=== PATIENT | male | born 1960 | race Caucasian/White ===

== ENCOUNTER 2016-09-26 06:05 | Day surgery (SDC) | payer OTHER ==
[~2016-09-26] VITALS: Ht 190.5 cm; Wt 186.0 kg
[~2016-09-26 06:05] MED LIST: ABILIFY2 MG PO; AMLODIPINE BESYL5 MG PO; BLEPH-105 ML OPTH; BUSPIRONE HCL10 MG PO; CENTRUM SILVER1 EAC3 PO; COZAAR100 MG PO; COZAAR50 MG PO; CYCLOBENZAPRINE10 MG PO; GABAPENTIN300 MG PO; HUMULIN N100 UNIT/1 SUB-Q; HUMULIN R100 UNIT/1 INJ; LASIX20 MG PO; LEVOTHYROXINE125 MCG PO; MAGNESIUM200 MG PO; METFORMIN HCL1000 MG PO; NAPROSYN500 MG PO; NOVOLIN N100 UNIT/1 SUB-Q; NOVOLIN R100 UNIT/1 INJ; NOVOLOG100 UNITS/ SUB-Q; OMEPRAZOLE20 M1 PO; PSEUDOEPHEDRINE60 MG PO; TRAMADOL HCL50 MG PO; VALIUM5 MG PO; VENTOLIN HFA18 GM INH; VITAMIN D22000 UNIT PO; WELLBUTRIN SR100 MG PO
--- NOTE | 2016-09-29 19:54 | OR ---
[facility] [address], [place] [address] Signed DATE OF PROCEDURE: 09/26/16 PREOPERATIVE DIAGNOSES Change in bowel habits with constipation. Father with a history of colon cancer at age 63. Maternal aunt and maternal uncle, both with colon cancer. POSTOPERATIVE DIAGNOSES Minimal shallow sigmoid diverticulosis. [id number]-ahrmekym internal hemorrhoid columns. PROCEDURE: Colonoscopy without biopsy. ESTIMATED BLOOD LOSS: None. INDICATIONS Dimitri is a 56-year-old obese diabetic gentleman who has a body mass index of 52. He weighs 421 pounds. We have taken care of him previously with a colonoscopy in 2013. We took some random biopsies and they were all negative. Also in 2008, he had a colonoscopy in [place] and in his knowledge that was negative. More recently, he had a change in bowel habits with constipation. He was therefore asked to see me for followup colonoscopy. We know that his father had colon cancer at age 63 and both maternal aunt and maternal uncle had colon cancer, and also a paternal grandmother had colon cancer. In the office, I gave him a pamphlet on colonoscopy, we discussed the nature of the test along with the risks including, but not limited to gas bloating, crampy abdominal pain, bleeding perforation requiring surgery, and missed diagnosis. We also discussed the need for IV conscious sedation. Given his size and his medical issues, we asked that anesthesia provider help us with increased monitoring and sedation. He has a very heavy neck and a full face pacheco and consequently there is a potential for airway issues. He had expressed understanding and wished to proceed. PROCEDURE NOTE Dimitri was taken into our endoscopy suite and placed in the left lateral decubitus position. He was given IV sedation with Propofol per our nurse reimbursement rep. A digital rectal exam was performed and this was unremarkable. The adult colonoscope was introduced and advanced under direct visualization of camera without difficulty. He had a few areas of liquid particulate stool matter, they could not quite suction out completely. We ran the scope easily right up to the handle and I could see down the right colon, but I could get the tip of the colonoscope into the cecum itself. Given his size, we simply could not rotate him on the table. Given that, we slowly withdrew the scope. We saw just a few shallow diverticula in the distal sigmoid colon. The rectum itself was unremarkable. Upon retroflexion of scope, he does have some minimal internal Electronically Signed By: ANA CONTRERAS MD 09/29/16 195 PATIENT NAME: DIMITRI SRINIVASAN OPERATIVE REPORT DATE OF : 58 PHYSICIAN: ANA CONTRERAS MD REPORT #: [id number] REPORT IS CONFIDENTIAL AND NOT TO BE RELEASED WITHOUT AUTHORIZATION [facility] [address], [place] [address] Signed hemorrhoid columns. After this, the gas was suctioned out and the colonoscope removed and Dimitri tolerated the procedure quite well. RECOMMENDATIONS Dimitri can follow up in my office in 5 years for repeat colonoscopy. MD ADOLFO Ascencio/Dinol /[id number] cc: Beau Flood MD Electronically Signed By: ANA CONTRERAS MD 09/29/16 1954 PATIENT NAME: DIMITRI SRINIVASAN OPERATIVE REPORT DATE OF : 58 PHYSICIAN: ANA CONTRERAS MD REPORT #: [id number] REPORT IS CONFIDENTIAL AND NOT TO BE RELEASED WITHOUT AUTHORIZATION
== END 2016-09-26 09:25 | disposition home or self-care (01) ==
LOC: OPS 06:05 → DS 06:05 → OPS 06:45
PROVIDERS: Colon & Rectal Surgery
PROC: 0DJD8ZZ Inspection of Lower Intestinal Tract, Via Natural or Artificial Opening Endoscopic (ICD-10-PCS; principal; 2016-09-26 06:45)
DX: K64.8 Other hemorrhoids (principal); K57.30 Diverticulosis of large intestine without perforation or abscess without bleeding; I10 Essential (primary) hypertension; E78.5 Hyperlipidemia, unspecified; E66.01 Morbid (severe) obesity due to excess calories; E03.9 Hypothyroidism, unspecified; M19.90 Unspecified osteoarthritis, unspecified site; E10.42 Type 1 diabetes mellitus with diabetic polyneuropathy; F32.9 Major depressive disorder, single episode, unspecified; J45.909 Unspecified asthma, uncomplicated; Z80.0 Family history of malignant neoplasm of digestive organs; Z68.43 Body mass index [BMI] 50.0-59.9, adult; Z87.01 Personal history of pneumonia (recurrent); Z87.442 Personal history of urinary calculi; Z98.890 Other specified postprocedural states; Z90.49 Acquired absence of other specified parts of digestive tract; Z88.0 Allergy status to penicillin; Z88.5 Allergy status to narcotic agent; Z79.899 Other long term (current) drug therapy
CPT/HCPCS: 00810; J2704; J7120

== ENCOUNTER 2018-10-25 00:28 | Emergency (ER) | payer OTHER ==
[~2018-10-25] VITALS: Ht 190.5 cm; Wt 163.3 kg
[2018-10-25] MEDS ORDERED: HUMULIN R100 UNIT/1 SUB-Q (00:51)
[2018-10-25] MEDS ORDERED: HUMULIN N100 UNIT/1 SUB-Q (00:52)
[2018-10-25] MEDS ORDERED: ABILIFY10 MG PO (00:53)
[2018-10-25] MEDS ORDERED: METFORMIN HCL1000 M1 PO (00:55)
[2018-10-25] MEDS ORDERED: VITAMIN D10000 UNIT PO (00:57)
[2018-10-25] MEDS ORDERED: QUETIAPINE FUM100 MG PO (00:58)
--- NOTE | 2018-10-25 12:40 | EKG ---
[facility] [address] [facility] [place] [address] Signed Normal sinus rhythm Normal ECG No previous ECGs available Confirmed by AMBROCIO NGO MD ([id number]) on 10/25/2018 12:39:50 PM Electronically Signed By: AMBROCIO NGO MD 10/25/18 1240 PATIENT NAME: ANA SRINIVASAN Electrocardiogram DATE OF : 58 PHYSICIAN: AMBROCOI NGO MD REPORT #: [id number] REPORT IS CONFIDENTIAL AND NOT TO BE RELEASED WITHOUT AUTHORIZATION
== END 2018-10-25 05:06 | disposition home or self-care (01) ==
LOC: ED 00:28
DX: R55 Syncope and collapse (principal); E11.9 Type 2 diabetes mellitus without complications; I10 Essential (primary) hypertension; E03.9 Hypothyroidism, unspecified; Z88.0 Allergy status to penicillin; Z88.8 Allergy status to other drugs, medicaments and biological substances; Z79.4 Long term (current) use of insulin; Z79.899 Other long term (current) drug therapy
CPT/HCPCS: 72125; 80053; 83735; 84484; 85025; 93005; 93010; 96360; 99284-25; J7030

== ENCOUNTER 2020-09-02 10:31 | Emergency (ER) | payer OTHER ==
[~2020-09-02] VITALS: Ht 190.5 cm; Wt 226.8 kg
[~2020-09-02 10:31] MED LIST changes: +ABILIFY10 MG PO; +HUMULIN R100 UNIT/1 SUB-Q; +METFORMIN HCL1000 M1 PO; +QUETIAPINE FUM100 MG PO; +VITAMIN D10000 UNIT PO
[2020-09-02] MEDS ORDERED: LASIX40 MG PO (10:44)
--- NOTE | 2020-09-03 18:59 | EKG ---
[facility] [address] [facility] [place] [address] Signed Normal sinus rhythm Inferior infarct , age undetermined Abnormal ECG When compared with ECG of 25-OCT-2018 00:33, Inferior infarct is now present Confirmed by AMBROCIO NGO MD ([id number]) on 09/03/2020 6:59:15 PM Electronically Signed By: AMBROCIO NGO MD 09/03/20 1859 PATIENT NAME: ANA SRINIVASAN Electrocardiogram DATE OF : 58 PHYSICIAN: AMBROCIO NGO MD REPORT #: [id number] REPORT IS CONFIDENTIAL AND NOT TO BE RELEASED WITHOUT AUTHORIZATION
== END 2020-09-02 13:45 | disposition home or self-care (01) ==
LOC: ED 10:31
DX: R06.00 Dyspnea, unspecified (principal); E66.01 Morbid (severe) obesity due to excess calories; E11.9 Type 2 diabetes mellitus without complications; I10 Essential (primary) hypertension; E03.9 Hypothyroidism, unspecified; Z88.0 Allergy status to penicillin; Z88.8 Allergy status to other drugs, medicaments and biological substances; Z79.899 Other long term (current) drug therapy; Z79.4 Long term (current) use of insulin; Z20.822 Contact with and (suspected) exposure to COVID-19
CPT/HCPCS: 71045; 80053; 84484; 85025; 85379; 93005; 93010; 94761; 99285-25; C9803; U0003

== ENCOUNTER 2020-12-31 04:32 | Emergency (ER) | payer OTHER ==
[~2020-12-31] VITALS: Ht 190.5 cm; Wt 208.7 kg
[~2020-12-31 04:32] MED LIST changes: +LASIX40 MG PO
[2020-12-31] MEDS ORDERED: ARIPIPRAZOLE15 MG PO (04:56)
[2020-12-31] MEDS ORDERED: METOPROLOL SUCC25 MG PO (04:56)
[2020-12-31] MEDS ORDERED: POTASSIUM CHLO10 MEQ PO (04:57)
[2020-12-31] MEDS ORDERED: MAGNESIUM200 MG PO (04:58)
== END 2020-12-31 06:41 | disposition home or self-care (01) ==
LOC: ED 04:32
DX: R60.0 Localized edema (principal); E11.9 Type 2 diabetes mellitus without complications; I10 Essential (primary) hypertension; E66.9 Obesity, unspecified; E03.9 Hypothyroidism, unspecified; J45.909 Unspecified asthma, uncomplicated; Z90.89 Acquired absence of other organs; Z88.0 Allergy status to penicillin; Z88.8 Allergy status to other drugs, medicaments and biological substances; Z79.899 Other long term (current) drug therapy; Z79.4 Long term (current) use of insulin; Z23 Encounter for immunization
CPT/HCPCS: 80053; 85025; 90471; 90714; 93970; 99284-25

== ENCOUNTER 2021-04-20 20:51 | Observation (INO) | payer OTHER ==
[~2021-04-20] VITALS: Ht 190.5 cm; Wt 199.3 kg
[~2021-04-20 20:51] MED LIST changes: -ABILIFY10 MG PO; +ABILIFY15 MG PO; +ARIPIPRAZOLE15 MG PO; -LEVOTHYROXINE125 MCG PO; +LEVOTHYROXINE150 MCG PO; -METFORMIN HCL1000 M1 PO; +METFORMIN HCL500 M2 PO; +METOPROLOL SUCC25 MG PO; +POTASSIUM CHLO10 MEQ PO; -WELLBUTRIN SR100 MG PO; +WELLBUTRIN XL150 MG PO
[2021-04-21] MEDS ORDERED: NYAMYC15 GM TOP (10:04)
[2021-04-21] MEDS ORDERED: ARTHRITIS PAIN150 GM TOP (10:20)
[2021-04-21] MEDS ORDERED: SEROQUEL100 MG PO (14:29)
[2021-04-21] MEDS ORDERED: SINGULAIR10 MG PO (14:44)
--- NOTE | 2021-04-22 15:57 | EKG ---
[facility] [address] [facility] [place] [address] Signed Normal sinus rhythm Normal ECG When compared with ECG of 02-SEP-2020 10:46, No significant change was found Confirmed by AMBROCIO NGO MD ([id number]) on 04/22/2021 3:57:31 PM Electronically Signed By: AMBROCIO NGO MD 04/22/21 1557 PATIENT NAME: ANA SRINIVASAN Electrocardiogram DATE OF : 58 PHYSICIAN: AMBROCIO NGO MD REPORT #: [id number] REPORT IS CONFIDENTIAL AND NOT TO BE RELEASED WITHOUT AUTHORIZATION
== END 2021-04-21 14:23 | disposition home or self-care (01) ==
LOC: ED 20:51 → MS 20:52
PROVIDERS: ADMIT Internal Medicine; ATTEND Internal Medicine
DX: J96.12 Chronic respiratory failure with hypercapnia (principal); J96.11 Chronic respiratory failure with hypoxia; E66.2 Morbid (severe) obesity with alveolar hypoventilation; I10 Essential (primary) hypertension; J45.909 Unspecified asthma, uncomplicated; E11.9 Type 2 diabetes mellitus without complications; F39 Unspecified mood [affective] disorder; E03.9 Hypothyroidism, unspecified; Z20.822 Contact with and (suspected) exposure to COVID-19; Z88.0 Allergy status to penicillin; Z88.8 Allergy status to other drugs, medicaments and biological substances; Z79.4 Long term (current) use of insulin
CPT/HCPCS: 36415; 36600; 71045; 71260; 74176; 80048; 80053; 81001; 82803; 83735; 83880; 84484; 85025; 85379; 93005; 93010; 94761; 94762; C9803; J1170; J2405; Q9967; U0003

== ENCOUNTER 2021-06-16 17:24 | Emergency (ER) | payer OTHER ==
[~2021-06-16] VITALS: Ht 190.5 cm; Wt 209.1 kg
[~2021-06-16 17:24] MED LIST changes: +ARTHRITIS PAIN150 GM TOP; +NYAMYC15 GM TOP; +SEROQUEL100 MG PO; +SINGULAIR10 MG PO
[2021-06-16] MEDS ORDERED: LOSARTAN POTASS25 MG PO (17:52)
[2021-06-16] MEDS ORDERED: BUPROPION HCL150 M2 PO (17:52)
== END 2021-06-16 18:53 | disposition home or self-care (01) ==
LOC: ED 17:24
DX: R45.851 Suicidal ideations (principal); E11.9 Type 2 diabetes mellitus without complications; I10 Essential (primary) hypertension; E66.9 Obesity, unspecified; E03.9 Hypothyroidism, unspecified; J45.909 Unspecified asthma, uncomplicated; Z88.0 Allergy status to penicillin; Z88.8 Allergy status to other drugs, medicaments and biological substances; Z79.899 Other long term (current) drug therapy; Z79.84 Long term (current) use of oral hypoglycemic drugs; Z79.4 Long term (current) use of insulin
CPT/HCPCS: 99284

== ENCOUNTER 2022-05-07 17:00 | Inpatient (IN) | payer OTHER ==
[~2022-05-07] VITALS: Ht 193 cm; Wt 196.9 kg
[~2022-05-07 17:00] MED LIST changes: +BUPROPION HCL150 M2 PO; -CENTRUM SILVER1 EAC3 PO; +FLUCONAZOLE200 MG PO; +FUROSEMIDE40 MG PO; -HUMULIN R100 UNIT/1 SUB-Q; +ONE-DAILY MULT1 EAC1 PO; +PANTOPRAZOLE SO40 MG PO; +TAMSULOSIN HCL0.4 MG PO; -VITAMIN D10000 UNIT PO; +VITAMIN D3125 MCG PO
--- NOTE | 2022-05-07 21:45 | NUR ---
pt ARRIVES TO MS FLOOR VIA STRETCHER. 2PA TO SIT AT SIDE OF STRETCHER, PIVOT TO HOSPITAL BED. pt COMPLAINS OF WEAKNESS, DIZZINESS FOR SEVERAL MINUTES. SOB WITH AMBULATION. SPO2 WNL, 4L OXYGEN BY NC IN PLACE. LABORED BREATHING RR 28 AFTER EXERTION. pt NOW RESTING IN BED. ASSESSMENT COMPLETE. REDNESS NOTED BLE AND RIGHT UPPER LEG, OUTLINED. IV SITES FLUSHED WNL. IV ANTIBIOTICS INFUSING WNL. CBG 92. pt STATES HE DOESN'T TAKE HIS LONG ACTING INSULIN WHEN ITS THIS LOW. NOTIFIED, TELEPHONE ORDER TO HOLD DOSE OF SEMGLEE. CALL LIGHT IN REACH. ORIENTATION PROVIDED.
--- NOTE | 2022-05-07 23:39 | NUR ---
CHECKED ON pt. RESTING IN BED WITH EYES CLOSED. BREATHING NON-LABORED. HOME CPAP ON.
--- NOTE | 2022-05-08 01:41 | NUR ---
CLOTH MENDER OUT OF ROOM. VSS. HOME CPAP ON WITH 4L OXYGEN BLED IN. pt DENIES NEEDS. CALL LIGHT IN REACH.
--- NOTE | 2022-05-08 04:22 | NUR ---
CALL LIGHT ANSWERED. pt COMPLAINS OF HEARTBURN, NIO MEDICATION ADMINISTERED, SEE EMAR. pt ASSISTED TO VOID IN URINAL, MAX 1PA TO SIDE OF BED AND TO STAND. pt LABORED WITH MOVEMENT. SPO2 98% WITH 4L OXYGEN BY NC ON. ASSESSMENT COMPLETE. RESTING IN BED WATCHING TV AT THIS TIME. CALL LIGHT AND PERSONAL SUPPLIES WITHIN REACH.
--- NOTE | 2022-05-08 05:17 | NUR ---
PT IN BED. VITALS AND IS AND OS COMPLETE. PT DECLINED RESTROOM NEEDS. ICE WATER REFRESHED. LIGHTS OFF PER PT. NO NEEDS AT THIS TIME CALL LIGHT WITHIN REACH
--- NOTE | 2022-05-08 07:29 | NUR ---
PT RESTING IN BED QUIET ALERT AT TIME OF SHIFT REPORT. FRESH H20 AND NEEDED ITEMS AT BEDSIDE. DENIES NEEDS OF.
--- NOTE | 2022-05-08 08:22 | NUR ---
PT CALL LIGHT ANSWERED. PT STATED HE WAS VOMITING. PT ASSISTED W CLEANING UP. PT PROVIDED WASH CLOTH AND [place]OWN. RN NOTIFIED. PT PROVIDED EMESIS BAG. NO FURTHER NEEDS. CALL LIGHT WITHIN REACH
--- NOTE | 2022-05-08 08:36 | NUR ---
SPOKE TO PATIENT ABOUT HIS DISCHARGE PLAN. PATIENT PLANS TO GO HOME WITH HIS . PATIENT OWNS HIS OWN HOUSE AND STATES HE HAS NO FINANCIAL ISSUES AND ABLE TO AFFORD MEDICATIONS, HOUSE PAYMENTS AND FOOD. PATIENT USES CRUTCHES TO MOVE AROUND AND HAS NO OTHER DME. PATIENT USES 02 AND CPAP AT NIGHT. PATIENT WORKS FROM HOME. THE PATIENT'S DOES MOST THE DRIVING BECAUSE THE PATIENT HAS GAINED WEIGHT THIS LAST YEAR. PATIENT IS ON A KETOGENIC DIET AND IS TRING TO LOOSE WEIGHT. PATIENT HAS A SUPORTIVE FAMILY AND IS HELPFUL WHEN NEEDED. PATIENT DOES HAVE A HISTORY OF DIABETES AND OBESITY. UPDATED PATIENT'S WHITE BOARD WITH OPERATIONS INSPECTOR NAME FOR CONTACT IF THERE ARE QUESTIONS OR HELP CASE MANAGEMENT COULD PROVIDE.
--- NOTE | 2022-05-08 08:47 | NUR ---
PT C/O INDIGESTION SHORTLY AFTER MORNING REPORT. TOO EARLY FOR MAALOX PT AGREES TO SOME SALTINES. HAS CLEAR LIQUID EMESIS SHORTLY AFTER THAT. DENIES CONTINUED NAUSEA STATES HE THINKS THAT "WAS THE END OF IT" BREAKFAST IS SERVED PT EATING A LITTLE YOGURT. DR LARA IN TO SEE PT FOR ASSESSMENT. PT REPORTS FEELING NAUSEATED ZOFRAN ADMINISTERED. PT RESTING IN BED NOW NO FURTHER EMESIS. MORNING MEDS ARE BEING HELD FOR A LITTLE WHILE TO ENSURE HE CAN TOLERATE THEM
--- NOTE | 2022-05-08 09:05 | NUR ---
PT SATS WERE 97% EARLY IN THE SHIFT ON 4 LPM. TURNED DOWN TO 3L SATS HAVE REMAINED HIGH 90s PT CONTINUES ON 3L WHICH IS CHRONIC FOR HIM
--- NOTE | 2022-05-08 10:31 | NUR ---
NO EMESIS, PT STILL C/O ACID INDIGESTION, UNABLE TO TAKE MORNING MEDS. MAALOX ADMINISTERED. MEDICATIONS ARE AT BEDSIDE. PT INSTRUCTED TO INGEST 1-2 HE FEELS ABLE OVER TIME. UNDERSTANDING VERBALIZED P/T IN TO WORK WITH PT EARLIER, HE REQUESTS 2 PERSON ASSIST FOR GETTING UP. ASSISTED UP TO SITTING ON EDGE OF BED. PT STATES IT'S HURTING HIM, P/T AGREES HE DOESN'T HAVE TO GET UP IF HE FEELS UNABLE TO TOLERATE IT AND BEGINS TO ASSIST PT BACK TO BED. PT THEN STARTS TO TRY TO STAND UNATTENDED. HE THEN GIVES UP AND RETURNS TO BED. ASSISTED TO REPOSITION. VISITOR ARRIVES P/T LEAVES. PT LEFT RESTING IN BED.
--- NOTE | 2022-05-08 11:36 | NUR ---
SPOKE TO PATIENT AND HIS ABOUT THE PATIENT'S DISCHARGE PLAN.DRY ROOM OPERATOR TALK TO PATIENT ABOUT THE [employer] PROGRAM THAT "LOC" OFFERS.DRY ROOM OPERATOR ASKED THE PATIENT HE COULD CALL "LOC" BEFORE PATIENT LEAVES FOR HOME.PATIENT DECLINED CALLING "LOC" BUT PATIENT DID TAKE A LOC CARD. PATIENT STATED HE WILL THINK ABOUT CALLING "LOC" WHEN HE GETS HOME FROM THE HOSPITAL.PATIENT ENCOURAGED TO FIND HELP WITH HIS OVER USE OF ALCOHOL.
--- NOTE | 2022-05-08 12:12 | NUR ---
PT RESTING EYES CLOSED APPEARS TO BE COMFORTABLY DOZING
--- NOTE | 2022-05-08 12:35 | NUR ---
PT NOTIFIED BARIATRIC BED AVAILABLE AND [facility] HE STATES HE NEEDS TO MOVE HIS BOWELS SO BSC IS BROUGHT TO ROOM PT STANDS FROM THE BED TRANSFERS TO BSC, MOVES HIS BOWELS, THEN TRANSFERS TO THE CHAIR FOR NOON MEAL. WIIFE IS PRESENT IN THE ROOM. TRANSFERS WELL TOLERATED PT SITTING UP NOW IN RECLINER EATING NOON MEAL. CALVES MEASURED PER DR LARA REQUEST RIGHT LEG IS APROX 5 CM LARGER THAN LEFT. NUMBERS REPORTED TO HER
--- NOTE | 2022-05-08 13:16 | NUR ---
PT ALERT, ORIENTED AND SUPPORTED BY HIS CAROLYN. BOTH SEEM TO BE STRUGGLING WITH THIS ADMISSION. CELLULITIS HAS BEEN AN ISSUE APPARENTLY PREVIOUSLY. GAVE ENCOURAGEMENT AND BLESSING. WILL FOLLOW
--- NOTE | 2022-05-08 14:27 | NUR ---
PT CONTINUES UP IN THE CHAIR DOZING. IS PRESENT IN THE ROOM. ABX INFUSING
--- NOTE | 2022-05-08 14:45 | NUR ---
PT UP TO VOID THEN BACK TO THE BED FOR U/S OF RLE. PT AGREES THE BED IS MUCH MORE COMFORTABLE. CALL LIGHT IN REACH PRESENT IN THE ROOM.
--- NOTE | 2022-05-08 18:26 | NUR ---
PT CONTINUES UP IN THE CHAIR DOZING OFF AND ON.
--- NOTE | 2022-05-08 19:22 | NUR ---
REPORT RECEIVED FROM DAY SHIFT RN. PT SITTING IN RECLINER RESTING WITH EYES CLOSED. RESPIRATIONS EVEN. CALL LIGHT IN REACH.
--- NOTE | 2022-05-08 20:47 | NUR ---
PT BACK TO BED WITH FWW AND 2PA. GAIT STEADY. ASSISTANCE NEEDED TO GET LEGS INTO BED. VS AND I&O OBTAINED. EVENING ASSESSMENT COMPLETE. SCHEDULED MEDS ADMIN PER EMAR. PT DENIES PAIN OR NAUSEA. RIGHT LEG REDNESS/EDEMA/WARMTH NOTED. REDNESS WITHIN OUTLINE. CMS INTACT BILAT. LEFT LEG REDNESS NOTED. UNDER PANNUS CLEANED AND DRIED, SCHEDULED POWDER APPLIED. UNDER RIGHT SIDE PANNUS SKIN RED AND RASHY. PILLOW CASES PLACED FOR MOISTURE. 3L/NC IN PLACE. RESPIRATIONS EVEN. PT DENIES QUESTIONS OR CONCERNS. CALL LIGHT IN REACH.
--- NOTE | 2022-05-08 22:00 | NUR ---
CALL LIGHT ANSWERED. 2PA TO BSC TO HAVE SMALL LIQUID BM. STAFF ASSIST WITH GABE CARE. BACK TO BED. PT WITH DIFFICULTY TRANSFERRING SELF AND TIRES EASILY. STAFF ASSIST TO REPOSITION AND BRING LEGS INTO BED. BLE ELEVATED ON PILLOWS. IV ABX INFUSING WNL. HOME CPAP IN PLACE. CALL LIGHT IN REACH.
--- NOTE | 2022-05-09 00:40 | NUR ---
PT AWAKE IN BED. ATTEMPTED TO USE URINAL WITH NO RESULTS. REQUESTS TO TRY AGAIN LATER. CPAP BACK ON. NO FURTHER NEEDS.
--- NOTE | 2022-05-09 02:11 | NUR ---
PT UP TO BSC WITH 2PA AND FWW TO HAVE SMALL CLEAR LIQUID/JELLY LIKE BM. STAFF ASSIST WITH GABE CARE. PT STOOD TO VOID 350 ML CONCENTRATED URINE. BACK TO BED. PT SOB WITH ACTIVITY. STAFF ASSIST TO LIFT LEGS INTO BED. BLE ELEVATED WITH PILLOWS. FRESH WATER PROVIDED. ASSESSMENT COMPLETE. NO FURTHER NEEDS.
--- NOTE | 2022-05-09 04:03 | NUR ---
IN IV PUMP ALARMING, RESOLVED. PT LAYING IN BED SEMI-FOWLERS WITH CPAP ON. PT RESPONDS WHEN ADDRESSED. PT SALINE LOCKED. PT DENIES ANY OTHER NEEDS AT THIS TIME. CALL LIGHT IN REACH.
--- NOTE | 2022-05-09 05:47 | NUR ---
LAB IN ROOM FOR MORNING DRAW. VS AND I&O OBTAINED. SCHEDULED MEDS ADMIN PER EMAR. PT DENIES NEEDS. CPAP IN PLACE. CALL LIGHT IN REACH.
--- NOTE | 2022-05-09 07:15 | NUR ---
report from Rebecca rn, pt eyes closed, resp even with home cpap on, call light in [facility] bed in use. updated white board.
[2022-05-09] MEDS ORDERED: ARIPIPRAZOLE20 MG PO (07:39)
[2022-05-09] MEDS ORDERED: QUETIAPINE FUM100 MG PO (07:40)
[2022-05-09] MEDS ORDERED: SILDENAFIL CIT100 MG PO (07:41)
[2022-05-09] MEDS ORDERED: LOSARTAN POTASS50 MG PO (07:42)
--- NOTE | 2022-05-09 08:42 | NUR ---
PHARMACY IN ROOM NOW WITH THIS RN AND PT REVIEWING MEDICATIONS.
[2022-05-09] MEDS ORDERED: LOSARTAN POTASS25 MG PO (08:46)
--- NOTE | 2022-05-09 08:54 | NUR ---
medications reconciled using pharmacy records and patient interview
--- NOTE | 2022-05-09 10:15 | NUR ---
PATIENT UP AT EDGE OF BED TO USE URINAL, 1PA. PATIENT THEN PIVOT TO BSC, SBA. PATIENT NOW BACK TO BED, PIVOT SBA. LINENS CHANGED. GABE CARE, SKIN CARE DONE. CALL LIGHT IN REACH. NO FURTHER NEEDS AT THIS TIME.
--- NOTE | 2022-05-09 11:15 | NUR ---
SPOKE TO PATIENT AND HIS ABOUT THE PATIENT'S DISCHARGE PLAN. PATIENT WANTS TO GO HOME WITH AND WANTS THE PATIENT HOME. PRODUCTION SKI REPAIRER DICUSSED THE NEED TO GO TO ALF IF CELLULITIS IS SLOW ON IMPROVEMENT. PATIENT WANTS TO STAY HOME FOR RECOVERY BUT WOULDD CONSIDER ALF IF NEEDED.
--- NOTE | 2022-05-09 12:10 | NUR ---
in with pt for insulin during meal - pt scruntched in bed, encouraged pt to get up to for change position. pt to stand with fww rn assisted pt to void with urinal - void 1800 ml at one time, dark yellow urine. pt to bsc to have bm, clear jelly stool noted - pt reports that over the last week his stools have been like this and he has had poor intake. pt is dependent on staff for josette care and assistance to void. trsf to chair with fww after bsc - up visiting with call light and ot therapy is with pt now.
--- NOTE | 2022-05-09 14:05 | NUR ---
pt up in ch with head up, feet elevated, iv abx fusing call light in reach - denies needs.
--- NOTE | 2022-05-09 14:41 | NUR ---
PT ALERT, ORIENTED AND SITTING UP VISITING WITH HIS CAROLYN. PT IS PLEASANT, GAVE ENCOURAGEMENT. THEY BOTH THANKED ME, WILL FOLLOW
--- NOTE | 2022-05-09 17:04 | NUR ---
pt legs unchanged - elevated in chair - pt eating dinner no complaints - call light in hand.
--- NOTE | 2022-05-09 17:29 | NUR ---
pt void 1800 ml while standing with fww and rn assistance. pt to [facility] continues to have clear jelly like stools - pt then was able to amb with fww to sink for oral and hair care - on room air. back to chair with legs elevated and room air sat with exertion was 99 % - removed oxygen and pt reports that he sometimes is on room air at home. no sob at rest - in room, pt sitting up with legs elevated. r upper thight and postieior skin fold on abd red with cellulities and warm. receding from lines drawn on admit. pt reports feeling better. call light in reach.
--- NOTE | 2022-05-09 19:10 | NUR ---
REPORT RECEIVED FROM LLUVIA Tobias RN. PT SITTING UP IN CHAIR ON PHONE. PT REQUESTING ICE WATER. ICE WATER PROVIDED. PT DENIES ANY OTHER NEEDS AT THIS TIME. CALL LIGHT IN REACH.
--- NOTE | 2022-05-09 21:24 | NUR ---
IN TO ADMINISTER MEDICATIONS, SEE MAR. PT SITTING UP IN CHAIR AND RESPONDS WHEN ADDRESSED. PT TAKES PO MEIDCATIONS WITH NO ISSUES. PT REFUSED SINGULAIR AND STATES "I ONLY TAKE IT DURING THE POLLEN SEASON, I DO NOT NEED IT NOW." VITALS AND I&Os COMPLETE. ASSESSMENT COMPLETE. LUNG SOUNDS CLEAR. DIMINISHED IN RLL AND LLL. BOWEL TONES ACTIVE. PT DENIES ANY PAIN AT THIS TIME. REDNESS NOTED TO PANNUS, DESENEX POWDER APPLIED. REDNESS NOTED TO RLE AND LLE. EDEMA NOTED TO BLE. PT REQUESTING WATER AND WARM BLANKETS, WATER AND WARM BLANKETS PROVIDED. PT DENIES TOILETING AT THIS TIME. PT DENIES ANY OTHER NEEDS AT THIS TIME. CALL LIGHT IN REACH.
--- NOTE | 2022-05-09 21:46 | NUR ---
IN TO ADMINISER MEDICATION, SEE MAR. PT SITTING UP IN CHAIR WATCHING TV. PT REQUESTING WATER, WATER PROVIDED. PT DENIES ANY OTHER NEEDS AT THIS TIME. CALL LIGHT IN REACH.
--- NOTE | 2022-05-09 23:32 | NUR ---
IN TO ANSWER CALL LIGHT. PT SITTING UP IN CHAIR REQUESTING TO GO TO BED. PT ALSO REPORTS TOILETING NEEDS. SBA WITH FWW. PT ABLE TO PUSH SLEF UP FROM CHAIR TO STANDING POSITION. URINAL HELD FOR PT TO VOID. VOID NOTED. PT AMBULATES WITH FWW AND SBA TO BED WITH NO ISSUES. BLE ELEVATED WITH PILLOWS. SHARIF JACKSON IN TO FILL PTs CPAP WITH STERIL WATER. ICE WATER PROVIDED FOR PT. PT DENIES ANY OTHER NEEDS AT THIS TIME. CALL LIGHT IN REACH.
--- NOTE | 2022-05-10 02:48 | NUR ---
IN IV PUMP ALARMING, RESOLVED. IV ABX COMPLETE. PT SL AT THIS TIME. PT RESTING IN BED WITH EYES CLOSED RR EVEN AND UNLABORED. CPAP IN PLACE. NO OTHER NEEDS IDENTIFIED AT THIS TIME. CALL LIGHT IN REACH.
--- NOTE | 2022-05-10 05:26 | NUR ---
IN TO ADMINISTER MEDICATIONS, SEE MAR. NATALIIA CNA IN ROOM OBTAINING VITALS AND I&Os. PT TAKES PO MEDICATION WITH NO ISSUES. ASSESSMENT COMPLETE. LUNG SOUNDS CLEAR IN RUL AND ABDIAS. DIMINISHED IN RLL AND LLL. BOWEL TONES ACTIVE. PT REPORTING PAIN IN MIDDLE DIGIT ON LEFT HAND A 2/10. NO EDEMA OR REDNESS NOTED. SMALL SCAB NOTED TO MIDDLE DIGIT. PT ABLE TO BEND FINGER. PT STATES "DO YOU HAVE ANY NEOSPORIN YOU CAN PUT ON IT? THAT IS WHAT I DO AT HOME." INFORMED PT I DO NOT HAVE ORDERS FOR NEOSPORIN AND THAT WE CAN ADDRESS THIS WITH THE PROVIDER. PT STATES "OKAY." OFFERED PT ICE PACK OR HOT PACK AND PT DECLINES OFFER. OFFERED PT PRN PAIN MEDICATION AND PT DECLINES OFFER. REDNESS NOTED TO BLE. ON BLE REDNESS IS WARM TO TOUCH. PT DENIES TOILETING NEEDS AT THIS TIME. PT LAYING IN BED ON PHONE. RR EVEN AND UNLABORED. BLE ELEVATED ON PILLOW. WATER PROVIDED. PT DENIES NAY NEEDS AT THIS TIME. CALL LIGHT IN REACH.
--- NOTE | 2022-05-10 06:08 | NUR ---
THIS RN TALKED TO SHARIF JACKSON ASKING IF WE HAVE NEOSPORIN TO PUT ON PTs FINGER PT IS REQUESTING NEOSPORIN. SHARIF JACKSON STATES "YOU CAN PUT BACITRACIN AND A BANDAID ON IT." IN AND OFFERED TO PLACE BANDAID WITH BACITRACIN ON PTs FINGER. PT ACCEPTS. MIDDLE DIGIT CLEANSED WITH WARM WASH CLOTH AND PATTED DRY. BACITRACIN PLACED TO FINGER AND COVERED WITH A BANDAID.
--- NOTE | 2022-05-10 07:30 | NUR ---
RECIEVED SHIFT REPORT. PT AWAKE IN BED, DENIES FURTHER NEEDS. CALL LIGHT IN REACH.
--- NOTE | 2022-05-10 08:20 | NUR ---
MORNING ASSESSMENT COMPLETE. PT DENIES ANY DISCOMFORTS AT THIS TIME. WHEN ASSESSING LEGS, TENDER TO TOUCH, TOLERABLE. BILAT LEGS ARE ELEVATED IN RECLINER. LUNGS CLEAR BILAT UPPER, DIM BILAT LOWER. CALL LIGHT WITHIN REACH. NO FURTHER NEEDS AT THIS TIME.
--- NOTE | 2022-05-10 10:40 | NUR ---
PT UP TO THE BSC, OT AT BEDSIDE ASSISTING PT. IN ROOM AT THIS TIME. CALL LIGHT IN REACH
--- NOTE | 2022-05-10 12:15 | NUR ---
STATED CONCERN PATIENT DOESNT SEEM INTERESTED IN EATING MEALS, UPDATED ON MEAL TREND. THIS RN ASKED WHAT HOW MUCH SHE EATS AT HOME, AND HE STATED "SMALL PORTIONS". PROVIDED AN ENSURE.
--- NOTE | 2022-05-10 12:45 | NUR ---
Spoke with pt and . and pt have now decided he would benefit from placement to a SNF to improve his strength. First choice is [facility], Second is [facility], 3rd is [facility] and rehab. I will fax his chart to all three places. I called all facilities. [facility] will not have a bed open until next week, [facility] beds, and so does [facility].
--- NOTE | 2022-05-10 13:28 | NUR ---
PT ALERT, ORIENTED AND VISITING WITH HIS CAROLYN. PT IS SITTING UP IN CHAIR, HAS JUST HAD SHOWER. O.Sheba BOSTONE FEELS PT HAS HAD A GOOD DAY WITH HER. HAD GOOD VISIT WITH PT, FEELS HE IS IMPROVING. BOTH FEEL THEY HAVE GOOD SUPPORT FROM FAMILY AND THEIR TAOIST. GAVE BLESSING
--- NOTE | 2022-05-10 15:26 | NUR ---
ANSWERED CALL LIGHT. PT NEEDED TO VOID. PT NEEDED TO USE COMMODE. PT WAS ABLE TO HAVE A BM, BUT URINATED WELL. UNABLE TO COLLECT SAMPLE AT THIS TIME. BM WAS CLEAR. PT BACK IN RECLINER, LEGS ELEVATED. WATER PROVIDED. CALL LIGHT IN REACH
--- NOTE | 2022-05-10 15:30 | NUR ---
Updated pt and charts have been sent. Will follow up when I hear the the SNFS. Texted Dr. Jenkins, pt will not be ready for dc until next week. SNFs notified.
--- NOTE | 2022-05-10 15:45 | NUR ---
AFTERNOON ASSESSMENT COMPLETE. RLE AND LLE REMAIN UNCHANGED SINCE MORNING ASSESSMENT. RLE WAS WEEPING. LEGS ELEVATED. DENIES FURTHER NEEDS. CALL LIGHT IN REACH.
--- NOTE | 2022-05-10 17:30 | NUR ---
PT SITTING IN RECLINER, AWAKE, WATCHING TV. DENIES ANY NEEDS. CALL LIGHT IN REACH
--- NOTE | 2022-05-10 18:43 | NUR ---
PT REMAINS IN RECLINER, CALL LIGHT IN REACH. DENIES FURTHER NEEDS
--- NOTE | 2022-05-10 19:00 | NUR ---
RECIEVE SHIFT REPORT. PT IS SITTING UP IN CHAIR, A/O, RESPIRATIONS EVEN AND REAGULAR.
--- NOTE | 2022-05-10 19:44 | NUR ---
PT ASSESSMENT COMPLETED. PT IS A/O, RESPIRATIONS EVEN AND REGULAR. DENIES NEEDS/COMPLAINTS ATT. PT IS SITTING UP IN CHAIR. CURRENTLY ON RA. CALL LIGHT WITHIN REACH.
--- NOTE | 2022-05-10 21:10 | NUR ---
MEDICATION ADMINISTRATION COMPLETED. ASSISTED PT FROM CHAIR TO RESTROOM AND TO BED. STOOL SAMPLE COLLECTED AND SENT TO LAB. PT AMBULATES WELL WITH 1 PA AND WALKER. HOME CPAP SET UP AT PT BEDSIDE TABLE. PT STATES HE WILL PLACE ON SELF WHEN READY FOR BED.
--- NOTE | 2022-05-10 22:53 | NUR ---
ROUNDED ON PT. PT IS A/O, RESTING COMFORTABLY IN BED. RESPIRATIONS EVEN AND REGULAR. RT AT BEDSIDE.
--- NOTE | 2022-05-11 01:02 | NUR ---
ROUNDED ON PT. PT APPEARS TO BE SLEEPING COMFORTABLY WITH CPAP ON. RESPIRATIONS EVEN AND REGULAR. CALL LIGHT WITHIN REACH.
--- NOTE | 2022-05-11 03:37 | NUR ---
ASSISTED PT TO RESTROOM. AMBULATES WELL WITH 1 PA AND WALKER, FATIGUES WITH BED POSITION CHANGES. PT IS A/O, RESPIRATIONS EVEN AND REGULAR. CALL LIGHT WITHIN REACH.
--- NOTE | 2022-05-11 06:00 | NUR ---
MEDICATION ADMINISTRATION COMPLETED. PT A/O, RESPIRATIONS EVEN AND REGULAR. DENIES NEEDS/COMPLAINTS ATT. CALL LIGHT WITHIN REACH.
--- NOTE | 2022-05-11 07:10 | NUR ---
recieved shift report. pt awake in bed, no needs at this time. call light in reach
--- NOTE | 2022-05-11 07:40 | NUR ---
PT RESTING IN BED, AWAKE. REQUESTS WATER, BUT NO FURTHER NEEDS. CALL LIGHT IN REACH.
--- NOTE | 2022-05-11 08:00 | NUR ---
Received a text from Mary Anne at &. They are declining this patient due to his weight.
--- NOTE | 2022-05-11 08:17 | NUR ---
MORNING ASSESSMENT COMPLETE. ASSISTED PT FROM BED TO RECLINER, 1PA, FWW. PT ABLE TO VOID THIS MORNING. BILAT LOWER EXT. REMAIN UNCHANGED. PT STATES 1/10 PAIN. LUNG SOUNDS REMAIN CLEAR BILAT UPPER, DIM BILAT LOWER. DENIES FURTHER NEEDS AT THIS TIME. CALL LIGHT IN REACH.
--- NOTE | 2022-05-11 10:50 | NUR ---
PT IN RECLINER, AWAKE. DENIES FURTHER NEEDS. CALL LIGHT IN REACH
--- NOTE | 2022-05-11 11:30 | NUR ---
PT WORKING WITH PHYSICAL THERAPY. CALL LIGHT IN REACH.
--- NOTE | 2022-05-11 11:45 | NUR ---
Notified by [facility], they do not accept pts insurance.
--- NOTE | 2022-05-11 12:12 | NUR ---
PT IN RECLINER EATING LUNCH. AT BEDSIDE. DENIES FURTHER NEEDS. CALL LIGHT IN REACH
--- NOTE | 2022-05-11 13:06 | NUR ---
PATIENT SITTING IN RECLINER, JUST FINISHED LUNCH. HIS IS VISITING. HE HAS BEEN HERE FOR SEVERAL DAYS SO I WAS JUST CHECKING ON HIM. HE SAID HIS APPETITE IS GETTING BETTER. HE HAS NOT ORDERED OFF THE PERSONAL CHOICE MENU YET HE DOESN'T MIND WHAT IS BROUGHT TO HIM. I EXPLAINED THE CONSISTENT CARB DIET THAT HE IS ON HERE. HE DOES NOT CONSUME ANY ARTIFICIAL SWEETENERS. HE HAS AN ALLERGY TO ASPARTAME FOR SURE - HE GETS A REALLY BAD MIGRAINE. HE WILL CONSUME MONK FRUIT SWEETENER AND SOME STEVIA, BUT AVOIDS ALL OTHERS BECAUSE IS DOESN'T KNOW WHAT THEY ARE MIXED WITH. HE DRINKS BLACK COFFEE IN THE MORNING AND DRINKS PLAIN WATER THROUGHOUT THE DAY. I WILL ENTER NO SUGAR-FREE ITEMS TO BE SENT WITH MEALS PER PATIENT PREFERENCE. WILL CONTINUE TO MONITOR.
--- NOTE | 2022-05-11 14:50 | NUR ---
RN IN ROOM TO OBTAIN VS AND I/O'S. PT RESTING IN CHAIR WATCHING TV WITH AT SIDE. DENIES COMPLAINTS OR NEEDS. CALL LIGHT IN REACH.
--- NOTE | 2022-05-11 15:45 | NUR ---
ASSESSMENT COMPLETE. NO NEW CHANGES SINCE MORNING ASSESSMENT. CALL LIGHT IN REACH. AT BEDSIDE.
--- NOTE | 2022-05-11 16:33 | NUR ---
PT IN RECLINER, RELIGIOUS LEADER IN ROOM, AT BEDSIDE.
--- NOTE | 2022-05-11 17:30 | NUR ---
PT TAKEN TO BATHROOM, BOAT OPERATOR IN ROOM TO ASSIST. PT BACK IN RECLINER, DENIES PAIN, AT BEDSIDE. CALL LIGHT IN REACH
--- NOTE | 2022-05-11 18:12 | NUR ---
PT AWAKE IN RECLINER, VSS. HAS NO COMPLAINTS. CALL LIGHT IN REACH.
--- NOTE | 2022-05-11 19:10 | NUR ---
REPORT RECEIVED FROM DAY RN. PT IS SITTING UP IN CHAIR. RESPIRATIONS EVEN AND REGULAR. CALL LIGHT WITHIN REACH.
--- NOTE | 2022-05-11 20:20 | NUR ---
PT ASSESSMENT AND MEDICATION ADMINISTRATION COMPLETED. ASSISTED PT WITH TRANSFER FROM CHAIR TO BED. PT IS A/O, RESPIRATIONS EVEN AND REGULAR. CALL LIGHT WITHIN REACH.
--- NOTE | 2022-05-11 20:45 | NUR ---
INSULIN GIVEN AND VS TAKEN. PT DENIES NEEDS/COMPLAINTS ATT. CALL LIGHT WITHIN REACH.
--- NOTE | 2022-05-11 22:38 | NUR ---
ROUNDED ON PT. PT APPEARS TO BE SLEEPING COMFORTABLY. RESPIRATIONS EVEN AND REGULAR. CALL LIGHT WITHIN REACH.
--- NOTE | 2022-05-12 01:00 | NUR ---
ROUNDED ON PT. PT APPEARS TO BE SLEEPING COMFORTABLY. CALL LIGHT WITHIN REACH.
--- NOTE | 2022-05-12 02:45 | NUR ---
PT ASSESSMENT COMPLETED. ASSISTED PT WITH CPAP. PT DENIES NEEDS/COMPLAINTS ATT. CALL LIGHT WITHIN REACH.
--- NOTE | 2022-05-12 02:51 | NUR ---
Took patient's vitals and got him fresh ice water. Said he did not need anything else.
--- NOTE | 2022-05-12 04:27 | NUR ---
ROUNDED ON PT. PT APPEARS TO BE SLEEPING COMFORTABLY. PT CONTINUES TO WEAR CPAP W/ 3LO2. RESPIRATIONS EVEN AND REGULAR. CALL LIGHT WITHIN REACH.
--- NOTE | 2022-05-12 06:48 | NUR ---
ROUNDED ON PT. PT A/O, RESPIRATIONS EVEN AND REGULAR. DENIES NEEDS/COMPLAINTS ATT. CALL LIGHT WITHIN REACH.
--- NOTE | 2022-05-12 07:28 | NUR ---
BILATERAL LE EDEMA HAS IMPROVED. PT IS AMBULATING WELL WITH 1 PERSON STAND BY ASSIST AND WALKER. STOOL CONTINUES TO BE MUCOID. AWAITING STOOL SAMPLE RESULTS. PT IS COMPLIANT WITH HOME CPAP AND 3L AT NIGHT. IV TO RIGHT AC INTACT AND FLUSHES WELL. NO COMPLAINTS OF NEUROPATHY PAIN OVER NIGHT. VS STABLE OVER NIGHT.
--- NOTE | 2022-05-12 08:08 | NUR ---
Patient up in bed with family at bedside. Pt denies any cares at this time.
--- NOTE | 2022-05-12 08:17 | NUR ---
Patient in bed this am per request. Ach check completed and documented, ice water given. Family in room. Call light within reach.
--- NOTE | 2022-05-12 09:40 | NUR ---
PATIENT IN CHAIR AFTER USING RESTROOM. VITALS AND I/O'S COMPLETED. ICE WATER GIVEN, CALL LIGHT WITHIN REACH.
--- NOTE | 2022-05-12 09:54 | NUR ---
STOOL SAMPLE WAS SENT TO LAB.
--- NOTE | 2022-05-12 12:45 | NUR ---
OVERALL PATIENT HAS BEEN DOING WELL THIS MORNING. PATIENT HAS BEEN UP IN THE CHAIR. WAS IN THIS MORNING WITH PATIENT. PATIENT GIVEN INSULIN AND MEDICATIONS AND IS CURRENT AT THIS TIME. PATIENT EATING WELL AND HAS GREAT FLUID INTAKE. BLE ARE ELEVATED IN THE CHAIR AT THIS TIME. IV IF FLUSHED AND WORKING WELL. PATIENT DID HAVE A MUCOUS LIKE STOOL THIS MORNING THAT WAS CLEAR IN COLOR WITH SLIGHT YELLOW TINGE THROUGH OUT. STOOL SAMPLE SENT TO LAB. PATIENT DID HAVE PT IN THIS MORNING TO WORK WITH HIM.
--- NOTE | 2022-05-12 13:38 | NUR ---
PATIENT IN CHAIR AFTER MEAL. VITALS AND I/O'S COMPLETED. WATER GIVEN, CALL LIGHT WITHIN REACH.
--- NOTE | 2022-05-12 15:37 | NUR ---
THIS RN TO ROOM TO CHECK ON PT. PT REMAINS UP TO CHAIR. PT DENIES PAIN AND NAUSEA. NO REQUESTS OR COMPLAINTS. ICE WATER REFILLED. 2ND RN SKIN ASSESSMENT DONE. RLE REMAINS RED, SWOLLEN AND WARM TO TOUCH (SEE SKIN ASSESSMENT). NO ADDITIONAL NEEDS AT THIS TIME. CALL LIGHT WITHIN REACH.
--- NOTE | 2022-05-12 18:15 | NUR ---
PATIENT HAS DONE WELL TODAY. PATIENT HAS BEEN UP IN THE CHAIR FOR MOST OF THE DAY. PATIENT HAS BLOOD SUGAR CHECKS, BLOOD SUGARS HAVE BEEN BELOW 200 TODAY. PATIENTS HAS BEEN IN AND OUT TODAY TO SEE HIM. BLE HAVE BEEN ELEVATED WITH PILLOWS. REDNESS REMAINS INSIDE THE MARKED LINES. EDEMA ON BOTH LEGS, REDDNESS. PATIENT IS SL ON THE RIGHT FOREARM. HE IS CURRENTLY ON ROOM AIR. HE IS A ONE PERSON ASSIST WITH WALKER. WE ARE CURRENTLY WAITING PLACEMENT FOR PATIENT. STOOL SAMPLE WAS COLLECTED TODAY AND SENT TO LAB. PATIENTS APPETITE HAS BEEN GREAT ALONG WITH PATIENT HAS BEEN DRINKING ALOT OF WATER.
--- NOTE | 2022-05-12 19:10 | NUR ---
RECEIVED REPORT FROM DAY RN. PT IS SITTING UP IN CHAIR A/O, RESPIRATIONS EVEN AND REGULAR. DENIES NEEDS/COMPLAINTS ATT. CALL LIGHT WITHIN REACH.
--- NOTE | 2022-05-12 19:44 | NUR ---
PT CALLED, ASSISTED PT TO VOID COLANDER (NOT A URINAL) DUE TO THE LARGE AMOUNT URINE (1100). FRESH ICE WATER GIVEN, GARBAGES EMPTIED. ALL PERSONAL SUPPLIES WITHIN REACH.
--- NOTE | 2022-05-12 20:10 | NUR ---
PT ASSESSMENT AND MEDICATION ADMINISTRATION COMPLETED. PT IS A/O, RESPIRATIONS EVEN AND REGULAR. DENIES PINS/NEEDLE SENSATION IN LE. IV TO RIGHT AC LEAKING POST MEDICATION ADMINISTRATION. WILL PLACE NEW IV. PT REMAINS SITTING UP IN CHAIR.
--- NOTE | 2022-05-12 21:00 | NUR ---
NEW IV STARTED TO LEFT WRIST. PT TOLERATED WELL. GOOD BLOOD RETURN AND FLUSH. CALL LIGHT WITHIN REACH.
--- NOTE | 2022-05-12 21:53 | NUR ---
ASSISTED PT TO RESTROOM. HAD LARGE BM THAT WAS NO LONGER CLEAR/MUCOID. NOW BROWN. AMBULATED WELL WITH WALKER. CALL LIGHT WITHIN REACH.
--- NOTE | 2022-05-13 | NUR ---
ROUNDED ON PT. PT APPEARS TO BE SLEEPING COMFORTABLY. CPAP ON WITH 3L NC. RESPIRATIONS EVEN AND REGULAR.
--- NOTE | 2022-05-13 01:04 | NUR ---
PT REQUESTED LIDOCAINE FOR PINS/NEEDLE PAIN TO BILATERAL FEET. FOCUSED ASSESSMENT COMPLETED. CALL LIGHT WITHIN REACH.
--- NOTE | 2022-05-13 03:35 | NUR ---
PT APPEARS TO BE SLEEPING COMFORTABLY. RESPIRATIONS EVEN AND REGULAR, PT IS WEARING HOME CPAP.
--- NOTE | 2022-05-13 04:59 | NUR ---
PT APPEARS TO BE SLEEPING COMFORTABLY. RESPIRATIONS EVEN AND REGULAR. CONTINUES TO WEAR CPAP.
--- NOTE | 2022-05-13 05:15 | NUR ---
ASSISTED PT TO STAND TO VOID AND THEN TO CHAIR. PT A/O, AMBULATING WELL WITH WALKER. CALL LIGHT WITHIN REACH.
--- NOTE | 2022-05-13 06:03 | NUR ---
PT SITTING UP IN CHAIR. A/O, RESPIRATIONS EVEN AND REGULAR. WATER REFILLED. DENIES ANY OTHER NEEDS/COMPLAINTS ATT. CALL LIGHT WITHIN REACH.
--- NOTE | 2022-05-13 07:35 | NUR ---
Patient up in chair this am prior to this ENROLLMENT ADVISOR's shift. Acu check completed, pt had no other requests or needs at this time. Call light within reach.
--- NOTE | 2022-05-13 09:23 | NUR ---
PATIENT UP VISITING WITH AT THIS TIME DRINKING COFFEE AND WATER. NO CONCERNS, CALL LIGHT WITHIN REACH.
--- NOTE | 2022-05-13 11:05 | NUR ---
PATIENT IS UP WALKING IN THE HALLWAY WITH PHYSICAL THERAPY.
--- NOTE | 2022-05-13 11:20 | NUR ---
PATIENT HAD A BOWEL MOVEMENT. SOFT, MEDIUM SIZED, BROWN.
--- NOTE | 2022-05-13 14:21 | NUR ---
PATIENT UP TO THE RESTROOM WITH THIS NURSE. PATIENT HAD A MEDIUM SOFT BROWN BOWEL MOVEMENT. PATIENT GOWN WAS CHANGED, TEETH AND HAIR BRUSHED. PATIENT STATES HE IS FEELING REALLY GOOD. PATIENT BACK IN CHAIR CURRENTLY.
--- NOTE | 2022-05-13 16:36 | NUR ---
PATIENT IN CHAIR WATCHING TV DRINKING WATER. PATIENT HAS A NOTEPAD HE IS WRITTING ON. PATIENT BLE ARE ELEVATED ON PILLOWS CURRENTLY.
--- NOTE | 2022-05-13 17:51 | NUR ---
PATIENT STOOD UP TO USE THE URINAL WITH NURSE ASSIST. PATIENT VOIDED 1700ML. PATIENT ATE 100% OF DINNER AND AGAIN DID NOT NEED SLIDING SCALE. PATIENTS BLOOD PRESSURE IS ELEVATED. PATIENT JUST SAT DOWN FROM USING THE URINAL. WILL REPEAT IN 5 MINUTES.
--- NOTE | 2022-05-13 18:29 | NUR ---
PATIENTS BLOOD PRESSURE HAS INCREASED TODAY ALONG WITH GETTING THE ADDITIONAL DOSE OF COZAAR AT 1430. PHONE CALL TO , HE IS ADVISED OF HIS LAST [address]INGS[address] ORDERS. PATIENT DENIES ANY SYMPTOMS.
--- NOTE | 2022-05-13 18:43 | NUR ---
PATIENT HAS BEEN DOING GREAT TODAY. PATIENT HAS HAD SOME SOFT, BROWN BOWEL MOVEMENTS TODAY ALONG WITH GREAT URINE OUTPUT. PATIENTS FLUID INTAKE HAS BEEN GREAT. HE HAS BEEN UP IN THE CHAIR ALL DAY BESIDES TRIPS TO THE RESTROOM. CELLULITIS IS IMPROVING AND REMAINING INSIDE THE MARKED LINES. PATIENT IS CURRENTLY WAITING ON PLACEMENT AND HOPEFUL THIS WILL HAPPEN TOMORROW. PATIENT IS STAND BY ASSIST WITH FRONT WHEEL WALKER. PATIENT HAS BEEN EATING GREAT AND HAS NOT NEEDING SLIDING SCALE INSULIN WITH LUNCH OR DINNER. WAS IN WITH PATIENT A COUPLE TIMES TODAY. PATIENTS BLOOD PRESSURE CONTINUED TO INCREASE TODAY. GAVE PATIENT ANOTHER DOSE OF COZAAR AT 1430 BUT CONTINUED TO INCREASE. CALLED AND ADVISED. ADVISED THIS NURSE THAT HE WILL PLACE ORDERS. PATIENT DENIES ANY SYMPTOMS FROM ELEVATED BLOOD PRESSURE. PATIENT WAS UP WALKING THE HALLS TODAY WITH PHYSICAL THERAPY WELL.
--- NOTE | 2022-05-13 19:23 | NUR ---
REPORT RECEIVED FROM SHARIF LUCIANO. pt UP IN CHAIR. ICE WATER PROVIDED. CALL LIGHT AND PERSONAL SUPPLIES IN REACH.
--- NOTE | 2022-05-13 20:10 | NUR ---
pt AWAKE SITTING UP IN CHAIR. DENIES PAIN. LIDOCAINE CREAM ADMINISTERED REQUESTED. ASSESSMENT COMPLETE. IV ANTIBIOTIC ADMINISTERED, IV SL WNL. CALL LIGHT IN REACH. pt DENIES TOILETING NEEDS.
--- NOTE | 2022-05-13 20:40 | NUR ---
PT CALLED, INDEPENDENTLY STOOD UP, WITH MOD DIFFICULTY TO STAND, THIS RN HELD THE CYLINDER FOR PT TO URINATE. ONCE DONE, PT AMBULATED SBA WITH FWW TO STANDING SCALE FOR WEIGHT, THEN BACK TO RECLINER CHAIR. PILLOWS UNDER LEGS, COVERS, ALL PERSONAL SUPPLIES WITHIN REACH.
--- NOTE | 2022-05-13 23:00 | NUR ---
CALL LIGHT ANSWERED. SBA WITH FWW TO BED FROM CHAIR. pt TRANSFERS INDEPENDENTLY INTO BED. CPAP WITH 3L OXYGEN IN REACH. CALL LIGHT AND PERSONAL SUPPLIES IN REACH.
--- NOTE | 2022-05-14 02:30 | NUR ---
CHECKED ON pt. pt RESTING IN BED, HOB ELEVATED, HOME CPAP ON WITH 3L OXYGEN IN PLACE. NO DISTRESS NOTED, BREATHING IS EQUAL AND UNLABORED.
--- NOTE | 2022-05-14 05:42 | NUR ---
RN NADEEM IN ROOM ASSISTING pt TO VOID IN URINAL. pt NOW UP IN CHAIR. VSS. pt DENIES ANY PAIN. ASSESSMENT COMPLETE. RLE RED, HOT TO TOUCH, ELEVATED IN CHAIR. PO FLUIDS PROVIDED REQUESTED. CALL LIGHT IN REACH.
--- NOTE | 2022-05-14 07:33 | NUR ---
REPORT RECEIVED FROM CUSTOMER SUPPORT CONSULTANT NURSE RENETTA. PATIENT UP IN CHAIR WITH AT BEDSIDE. PATIENT DENIES ANY CARES AT THIS TIME. PATIENT HAS WATER. PATIENT HOPEFUL TO GET TO LEAVE THE HOSPITAL TODAY. BLE ARE ELEVATED ON PILLOWS IN THE CHAIR.
--- NOTE | 2022-05-14 08:15 | NUR ---
MORNING MEDICATIONS GIVEN, IV FLUSHED AND WORKING WELL. PATIENT DID NOT NEED SLIDING SCALE THIS MORNING. PATIENT IS VERY HAPPY WITH HOW THINGS ARE GOING AND ADVISED THIS NURSE HE HAS NOT FELT THIS GOOD IN A LONG TIME. AT BEDSIDE WITH PATIENT. 100% OF BREAKFAST ATE.
--- NOTE | 2022-05-14 10:31 | NUR ---
PATIENT UP AND GETTING IN THE SHOWER WITH MATT BERNAL.
--- NOTE | 2022-05-14 11:15 | NUR ---
PATIENT TOOK A SHOWER AROUND 11:00AM. I ASKED THE PATIENT IF HE NEEDS ANY HELP JUST CALL ME. HE SAID NOT AT THIS TIME. BUT LATER ON HE DID ASK FOR HELP. SO I HELPED HIM WASH HIS BACK AND HIS LEGS. ALSO HELPED HIM RINSE UNDER HIS STOMACH. NURSE MADE THE BED. PUT POWERED UNDER HIS STOMACH. PATIENT BRUSHED HIS TEETH. AND ALSO SHAVED.
--- NOTE | 2022-05-14 11:30 | NUR ---
INTO SPEAK WITH PATIENT AND CAROLYN, WHO IS AT THE BEDSIDE. PATIENT IS UP IN THE CHAIR SHAVING AT THIS TIME. DISCUSSED WITH PATIENT AND CHEPRINCE THAT PER AM MEETING WITH STAFF IN SOUNDS THAT THE PATIENT MAY NO REQUIRE SNF PLACEMENT SINCE HE IS ABLE TO AMBULATE AND TRANSFER SAFELY. DISCUSS THE CRITERIA FOR SNF TRANSFER AND HOME HEALTH ASSIST. PATIENT AND HIS AGREE THAT HE IS DOING MUCH BETTER AND IS HAPPY TO GO HOME. REVIEWED WITH PATIENT THE NEED FOR OT TO ASSIST FOR ASSISTIVE DEVICES. PATIENT STATES CONCERNS FOR THE PATIENT FAILURE AT HOME DUE TO NO ABX OR FURTHER PT. ADVISED THAT PATIENT WILL LIKELY CONTINUE ON ORAL ABX WHEN DISCHARGED AND DISCUSSED THE NEED FOR FOLLOW UP WITH PCP. ADVISED WE WILL SCHEDULE F/U IN 7-10 DAYS OF DC WITH THE PATIENT PCP. DISCUSSED REFERRAL TO OPPT, PATIENT IS WILLING TO DRIVE HIM TO HIS APPOINTMENTS. PATIENT AND HIS CAROLYN ARE PRIMARY CAREGIVERS FOR A FAMILY MEMBER WHO IS DD. THE FAMILY MEMEBER IS CURRENTLY IN A SNF WHICH WILL ALLOW CAROLYN TO ASSIST WITH THE PATIENT WHEN DISCHARGED. INFORMATION GIVEN FOR FAMILY RESOURCES IF NEEDED.
--- NOTE | 2022-05-14 12:22 | NUR ---
PT SITTING IN CHAIR. ATE 100% OF LUNCH, GIVEN 3 UNITS SS HUMALOG FOR BG 141 AND 10 UNITS HUMALOG FOR MEAL CORRECTION. PT DENIES OTHER NEEDS AT THIS TIME.
[2022-05-14] MEDS ORDERED: DOXYCYCLINE HY100 MG PO (12:39)
[2022-05-14] MEDS ORDERED: AMLODIPINE BESYL5 MG PO (12:40)
[2022-05-14] MEDS ORDERED: LOSARTAN POTAS100 MG PO (12:40)
--- NOTE | 2022-05-14 13:40 | NUR ---
PATIENT DRESSED AND READY FOR DISCHARGE. DISCHARGE INSTRUCTION AND EDUCTION DONE WITH PATIENT AND HIS . IV REMOVED BY MATT BERNAL. PATIENT GOT ALL HIS BELONGINGS TOGETHER TO GO HOME. VITALS DONE. PATIENT WILL DO OUTPATIENT PHYSICAL THERAPY AND IS VERY HAPPY ABOUT THIS. PHARMACY CAME UP AND TALKED WITH PATIENT IN REGARDS TO HIS MEDICATIONS. PATIENT AWARE OF FOLLOW UP APT WITH PCP. PATIENT DENIES ANYMORE NEEDS AT THIS TIME. PATIENT THANKFUL FOR HIS CARE AT THE HOSPITAL. PATIENT TAKEN OUT IN WHEELCHAIR BY THIS NURSE.
--- NOTE | 2022-05-15 08:58 | NUR ---
Received a call from [facility] and spoke with [place]. They received the chart, pts is from [place] and is not licensed in [place]. I will call and check if there is a DrJanessa to cover orders at [facility]. Called and spoke with the administrative receptionist. She will message Dr. Porras and check if there is a DrJanessa to cover out of state orders who is licensed in [place]. They will call me back by the end of the day. I did notify her Dr. Yancey from their clinic is licensed in [place]. Will update [facility] when information received.
--- NOTE | 2022-05-15 09:14 | NUR ---
Called and spoke with Cori, pts . UPdated we have a call into the [facility] to check for a Physician licensed in [place] to cover HH orders. If there clinic does not have a physician to cover orders, they are willing to go to OP even though this would be very taxing for the patient and . Pt is over [address] self or leave the home without his .
--- NOTE | 2022-05-17 16:16 | NUR ---
Notified by [facility] they do not have a Dr. who will cosign orders for HH agency to see this pt. I spoke with our hospitalist and he was not working when this patient was here. He cannot sign orders for for OP therapy. I called and spoke with pts Cori. I asked her to call the clinic when their Dr returns from vacation and ask him to find a Dr. to Cosign with him for HH. Cori states her disabled sister with a fx hip will be returning from the SNF this week. She will not be able to leave the home once she returns. They need HH. I again encouraged her to call and ask for their PCP to get a Dr. with a license in [place] to co sign orders.
== END 2022-05-14 13:50 | disposition home or self-care (01) | DRG 603 ==
LOC: ED 17:00 → MS 17:02
PROVIDERS: ADMIT Internal Medicine; ATTEND Internal Medicine
DX: L03.115 Cellulitis of right lower limb (principal); Z68.43 Body mass index [BMI] 50.0-59.9, adult; N17.9 Acute kidney failure, unspecified; K52.9 Noninfective gastroenteritis and colitis, unspecified; Z20.822 Contact with and (suspected) exposure to COVID-19; R91.8 Other nonspecific abnormal finding of lung field; K80.20 Calculus of gallbladder without cholecystitis without obstruction; M24.60 Ankylosis, unspecified joint; N18.31 Chronic kidney disease, stage 3a; E11.22 Type 2 diabetes mellitus with diabetic chronic kidney disease; E03.9 Hypothyroidism, unspecified; F32.A Depression, unspecified; G47.33 Obstructive sleep apnea (adult) (pediatric); J45.909 Unspecified asthma, uncomplicated; G47.00 Insomnia, unspecified; F43.10 Post-traumatic stress disorder, unspecified; N40.0 Benign prostatic hyperplasia without lower urinary tract symptoms; I12.9 Hypertensive chronic kidney disease with stage 1 through stage 4 chronic kidney disease, or unspecified chronic kidney disease; E66.01 Morbid (severe) obesity due to excess calories; Z99.89 Dependence on other enabling machines and devices; Z99.81 Dependence on supplemental oxygen; Z90.49 Acquired absence of other specified parts of digestive tract; Z98.890 Other specified postprocedural states; Z88.0 Allergy status to penicillin; Z88.8 Allergy status to other drugs, medicaments and biological substances; Z79.51 Long term (current) use of inhaled steroids; Z79.4 Long term (current) use of insulin; Z79.899 Other long term (current) drug therapy
CPT/HCPCS: 36415; 71045; 74177; 80048; 80053; 81003; 83036; 83605; 85025; 87040; 87502; 93971; 94640; 94760; 97110; 97116; 97162; 97167; 97530; 97535; A9270; C9803; J0692; J0878; J1650; J1815; J2405; J3370; J7030; J7060; Q9967; U0003

== ENCOUNTER 2024-02-26 19:06 | Emergency (ER) | payer OTHER ==
[~2024-02-26] VITALS: Ht 193 cm; Wt 175.0 kg
[~2024-02-26 19:06] MED LIST changes: +ARIPIPRAZOLE20 MG PO; +DOXYCYCLINE HY100 MG PO; +LOSARTAN POTAS100 MG PO; +LOSARTAN POTASS25 MG PO; +LOSARTAN POTASS50 MG PO; +SILDENAFIL CIT100 MG PO
[2024-02-26 19:39] LABS: BASOPHILS 0.8 % (0-2); HEMATOCRIT 52.9 % (35.0-50.0); HEMOGLOBIN 18.4 g/dL (12.0-18.0); LYMPHOCYTES 8.9 % (24-44); MCH 31.7 (27-36); MCHC 34.8 g/dl (30-36); MCV 91.2 fl (81-99); MONOCYTES 4.1 % (0-12); NEUTROPHILS 86.2 % (39-80); PLATELET COUNT 287 K/uL (140-440)
[2024-02-26 20:08] LABS: ALBUMIN 3.2 g/dL (3.4-5.0); ALBUMIN/GLOBULIN RATIO 0.78 (1.1-2.4); ANION GAP 12.9 (7-21); BILIRUBIN, TOTAL 1.4 ng/dL (0.2-1.0); BUN/CREATININE RATIO 9.52 (6.0-28.6); CALCIUM 8.9 mg/dL (8.5-10.1); CREATININE, SERUM 1.89 mg/dL (0.70-1.30); MAGNESIUM 1.8 mg/dL (1.8-2.4); POTASSIUM 3.9 mmol/L (3.5-5.1); PROTEIN, TOTAL 7.3 g/dL (6.4-8.2)
[2024-02-26] MEDS ORDERED: FAMOTIDINE 20 MG/ 2 ML VIAL IV ONE (20:15)
[2024-02-26 20:29] LABS: TSH, 3RD GENERATION 0.601 uIU/mL (0.358-3.740)
[2024-02-26] MEDS ORDERED: LACTATED RINGER'S 1,000 ML IV ONE ×3 (20:30→22:45)
[2024-02-26] MEDS ORDERED: METOCLOPRAMIDE HCL 10 MG/2 ML SDV IV ONE (21:15)
[2024-02-27 00:10] LABS: BILIRUBIN, URINE NEGATIVE (negative); BLOOD/HGB, URINE TRACE-I (Negative); KETONE, URINE NEGATIVE (Negative); LEUK ESTERASE, URINE NEGATIVE (negative); NITRITE, URINE NEGATIVE (negative)
[2024-02-27 00:14] LABS: EPITHELIAL CELLS, URINE SQUAMOUS 1+ /lpf (0-1+)
[2024-02-27 00:16] LABS: BACTERIA, URINE RARE /hpf (negative); CASTS, URINE NONE SEEN \\lpf; COLLECTION TYPE, URINE CLEAN CATCH; CRYSTALS, URINE AMORPHOUS PHOSPH 4+ (0-1+); REFLEX CULTURE, URINE No (No)
[2024-02-27] MEDS ORDERED: REGLAN10 MG PO (00:17)
[2024-02-27] MEDS ORDERED: LOSARTAN POTASSIUM 25 MG TAB PO ONE ×2 (00:30→23:45)
[2024-02-27] MEDS ORDERED: TAMSULOSIN HCL 0.4 MG CAP PO ONE ×2 (00:30→23:45)
[2024-02-27 00:44] VITALS: BP 181/56
== END 2024-02-27 00:31 | disposition home or self-care (01) ==
LOC: ED 19:06
PROVIDERS: Internal Medicine
DX: E86.0 Dehydration (principal); R11.2 Nausea with vomiting, unspecified; T38.3X5A Adverse effect of insulin and oral hypoglycemic [antidiabetic] drugs, initial encounter; E11.9 Type 2 diabetes mellitus without complications; E03.9 Hypothyroidism, unspecified; J45.909 Unspecified asthma, uncomplicated; F31.9 Bipolar disorder, unspecified; E66.01 Morbid (severe) obesity due to excess calories; Z88.0 Allergy status to penicillin; Z88.8 Allergy status to other drugs, medicaments and biological substances; Z79.899 Other long term (current) drug therapy; Z79.890 Hormone replacement therapy; Z79.84 Long term (current) use of oral hypoglycemic drugs
CPT/HCPCS: 36415; 51798; 71045; 80053; 81001; 83690; 83735; 83880; 84443; 84484; 85025; 96361; 96374; 96375; 99284-25; J2765; J7121

== ENCOUNTER 2024-03-31 13:10 | Emergency (ER) | payer OTHER ==
[~2024-03-31] VITALS: Ht 193 cm; Wt 165.6 kg
[~2024-03-31 13:10] MED LIST changes: +REGLAN10 MG PO
[2024-03-31] MEDS ORDERED: LAMOTRIGINE25 MG PO (13:35)
[2024-03-31] MEDS ORDERED: MOUNJARO2.5 MG/0.5 SUB-Q (13:35)
[2024-03-31 14:59] LABS: BASOPHILS 0.4 % (0-2); EOSINOPHILS 1.3 % (0-6); HEMATOCRIT 47.4 % (35.0-50.0); HEMOGLOBIN 16.2 g/dL (12.0-18.0); LYMPHOCYTES 20.3 % (24-44); MCHC 34.2 g/dl (30-36); MCV 90.6 fl (81-99); MONOCYTES 6.3 % (0-12); NEUTROPHILS 71.7 % (39-80); PLATELET COUNT 249 K/uL (140-440); RBC 5.24 M/ul (4.3-5.7); RDW 14.6 (10.5-15.0)
[2024-03-31 15:15] LABS: BILIRUBIN, URINE NEGATIVE (negative); BLOOD/HGB, URINE MODERATE (Negative); KETONE, URINE NEGATIVE (Negative); LEUK ESTERASE, URINE MODERATE (negative); NITRITE, URINE NEGATIVE (negative)
[2024-03-31 15:18] LABS: ALBUMIN 2.9 g/dL (3.4-5.0); ALBUMIN/GLOBULIN RATIO 0.69 (1.1-2.4); ANION GAP 12.1 (7-21); BILIRUBIN, TOTAL 0.6 mg/dL (0.2-1.0); BUN/CREATININE RATIO 14.38 (6.0-28.6); CALCIUM 9.2 mg/dL (8.5-10.1); CREATININE, SERUM 1.46 mg/dL (0.70-1.30); POTASSIUM 4.1 mmol/L (3.5-5.1); PROTEIN, TOTAL 7.1 g/dL (6.4-8.2)
[2024-03-31 15:22] LABS: BACTERIA, URINE 1+ /hpf (negative); CASTS, URINE NONE SEEN \\lpf; COLLECTION TYPE, URINE CLEAN CATCH; CRYSTALS, URINE NONE SEEN (0-1+); EPITHELIAL CELLS, URINE SQUAMOUS 1+ /lpf (0-1+); RED BLOOD CELLS, URINE 0-1 /hpf (0-5); REFLEX CULTURE, URINE Yes (No); WHITE BLOOD CELLS, URINE >50 /HPF (0-5)
[2024-03-31] MEDS ORDERED: CIPRO500 MG PO (16:36)
[2024-03-31] MEDS ORDERED: CIPROFLOXACIN 500 MG TAB PO ONE (16:45)
[2024-03-31 16:51] VITALS: BP 138/82
== END 2024-03-31 16:52 | disposition home or self-care (01) ==
LOC: ED 13:10
PROVIDERS: Emergency Medicine
DX: N39.0 Urinary tract infection, site not specified (principal); E11.9 Type 2 diabetes mellitus without complications; I10 Essential (primary) hypertension; E03.9 Hypothyroidism, unspecified; J45.909 Unspecified asthma, uncomplicated; E66.9 Obesity, unspecified; Z88.0 Allergy status to penicillin; Z88.8 Allergy status to other drugs, medicaments and biological substances; Z79.890 Hormone replacement therapy; Z79.4 Long term (current) use of insulin; Z79.84 Long term (current) use of oral hypoglycemic drugs; Z79.85 Long-term (current) use of injectable non-insulin antidiabetic drugs; Z79.899 Other long term (current) drug therapy
CPT/HCPCS: 36415; 80053; 81001; 85025; 87077; 87088; 99283

== ENCOUNTER 2024-04-26 21:45 | Emergency (ER) | payer OTHER ==
[~2024-04-26] VITALS: Ht 193 cm; Wt 168.1 kg
[~2024-04-26 21:45] MED LIST changes: +CIPRO500 MG PO; +LAMOTRIGINE25 MG PO; +MOUNJARO2.5 MG/0.5 SUB-Q
--- OUTSIDE RECORDS SUMMARY | 2024-04-26 21:52 | XMS ---
PreManage Notification: ANA SRINIVASAN Security Junior Legal Secretary Events No recent Security Events currently on file CRITERIA MET - [facility] - 2 Visits in 30 Days CARE PROVIDERS -, [facility] Dentist: Link Trainer Maintenance Man Current [place] PHONE: [phone] KIRSTEN BARBER Internal Medicine Current PHONE: Unknown Jessenia has no Care Guidelines for this patient. EMounika VISIT COUNT (12 MO.) [address] [place] [address] TOTAL 3 NOTE: Visits indicate total known visits. ED/UCC VISIT TRACKING (12 MO.) 04/26/2024 21:46 [facility] TYPE: Emergency COMPLAINT: - FALL 03/31/2024 13:11 [facility] TYPE: Emergency COMPLAINT: - POSS DEHYDRATION DIAGNOSES: - Allergy status to other drugs, medicaments and biological substances - Allergy status to penicillin - Essential (primary) hypertension - Hormone replacement therapy - Hypothyroidism, unspecified - FCI (current) use of insulin - roasterman (current) use of oral hypoglycemic drugs - Long-term (current) use of injectable non-insulin antidiabetic drugs - Obesity, unspecified - Other custodial (current) drug therapy - Painful micturition, unspecified - Type 2 diabetes mellitus without complications - Unspecified asthma, uncomplicated - Urinary tract infection, site not specified 02/26/2024 19:[address] [facility] [place] TYPE: Emergency COMPLAINT: - VOMITING DIAGNOSES: - Adverse effect of insulin and oral hypoglycemic [antidiabetic] drugs, initial encounter - Allergy status to other drugs, medicaments and biological substances - Allergy status to penicillin - Bipolar disorder, unspecified - Dehydration - Hormone replacement therapy - Hypothyroidism, unspecified - roasterman (current) use of oral hypoglycemic drugs - Morbid (severe) obesity due to excess calories - Nausea with vomiting, unspecified - Other terminal carman (current) drug therapy - Type 2 diabetes mellitus without complications - Unspecified asthma, uncomplicated INPATIENT VISIT TRACKING (12 MO.) No inpatient visits to display in this time frame [email or web address]
[2024-04-26 22:08] LABS: BASOPHILS 0.5 % (0-2); EOSINOPHILS 1.2 % (0-6); HEMATOCRIT 46.7 % (35.0-50.0); HEMOGLOBIN 15.8 g/dL (12.0-18.0); LYMPHOCYTES 20.8 % (24-44); MCH 31.1 (27-36); MCHC 33.9 g/dl (30-36); MCV 91.6 fl (81-99); MONOCYTES 6.9 % (0-12); NEUTROPHILS 70.6 % (39-80); PLATELET COUNT 227 K/uL (140-440); RDW 14.8 (10.5-15.0)
[2024-04-26 22:20] LABS: PROTIME 13.1 Sec (11.2-14.2)
[2024-04-26 22:25] LABS: ALBUMIN 3.3 g/dL (3.4-5.0); ALBUMIN/GLOBULIN RATIO 0.85 (1.1-2.4); ANION GAP 13.2 (7-21); BILIRUBIN, TOTAL 0.8 mg/dL (0.2-1.0); BUN/CREATININE RATIO 16.21 (6.0-28.6); CALCIUM 9.5 mg/dL (8.5-10.1); CREATININE, SERUM 1.48 mg/dL (0.70-1.30); MAGNESIUM 1.9 mg/dL (1.8-2.4); POTASSIUM 4.2 mmol/L (3.5-5.1); PROTEIN, TOTAL 7.2 g/dL (6.4-8.2)
[2024-04-26] MEDS ORDERED: levETIRAcetam 4,500 MG in DEXTROSE 5% 100 ML IV ONE (23:00)
[2024-04-26] MEDS ORDERED: MANNITOL 20% 100 GM/500 ML BAG IV ONE (23:00)
[2024-04-26] MEDS ORDERED: niCARdipine HCL 50 MG in DEXTROSE 5% 250 ML IV SCH (23:00)
[2024-04-26] MEDS ORDERED: METOPROLOL TARTRATE 5 MG/5 ML VIAL IV ONE (23:00)
[2024-04-26] MEDS ORDERED: DEXTROSE 5% 100 ML IV ONE (23:00)
[2024-04-26] MEDS ORDERED: ENALAPRILAT DIHYDRATE 1.25 MG/ML VIAL IV ONE (23:30)
[2024-04-26] MEDS ORDERED: propofoL 100 ML IV ONE (23:32)
[2024-04-27] MEDS ORDERED: propofoL 200 MG/20 ML VIAL IV ONE
[2024-04-27] MEDS ORDERED: ETOMIDATE 40 MG/20 ML VIAL IV ONE
[2024-04-27 00:04] LABS: BILIRUBIN, URINE NEGATIVE (negative); BLOOD/HGB, URINE TRACE-I (Negative); KETONE, URINE TRACE (Negative); LEUK ESTERASE, URINE NEGATIVE (negative); NITRITE, URINE NEGATIVE (negative)
[2024-04-27] MEDS ORDERED: METOPROLOL TARTRATE 5 MG/5 ML VIAL ONE (00:07)
[2024-04-27 00:14] LABS: CRYSTALS, URINE NONE SEEN (0-1+); EPITHELIAL CELLS, URINE SQUAMOUS 1+ /lpf (0-1+)
[2024-04-27 00:15] LABS: BACTERIA, URINE RARE /hpf (negative); CASTS, URINE HYALINE 1+ \\lpf; COLLECTION TYPE, URINE CLEAN CATCH; REFLEX CULTURE, URINE No (No)
[2024-04-27] MEDS ORDERED: METOPROLOL TARTRATE 5 MG/5 ML VIAL IV ONE (00:15)
[2024-04-27 00:24] LABS: BASE EXCESS, BLOOD GAS -0.8 mmol/L (-2-2); HCO3, BLOOD GAS 26.3 mmol/L (22-26); O2 SATURATION, BLOOD GAS 98.1 % (95.0-100.0); PCO2, BLOOD GAS 49.7 mmHg (35-45); PH, BLOOD GAS 7.33 (7.35-7.45); TOTAL CO2, BLOOD GAS 27.9
[2024-04-27] MEDS ORDERED: ENALAPRILAT DIHYDRATE 1.25 MG/ML VIAL IV ONE (00:30)
[2024-04-27 00:59] VITALS: BP 141/74
[2024-04-27] MEDS ORDERED: FENTANYL CITRATE-0.9 % NACL/PF 100 ML IV SCH (01:00)
[2024-04-27] MEDS ORDERED: propofoL 100 ML IV SCH (01:15)
[2024-04-27] MEDS ORDERED: ROCURONIUM BROMIDE 50 MG/5 ML SYR IV ONE (06:00)
== END 2024-04-27 02:00 | disposition short-term general hospital (02) ==
LOC: ED 21:45
PROVIDERS: Family Medicine
DX: S06.5X0A Traumatic subdural hemorrhage without loss of consciousness, initial encounter (principal); G93.89 Other specified disorders of brain; W19.XXXA Unspecified fall, initial encounter; E11.9 Type 2 diabetes mellitus without complications; E66.9 Obesity, unspecified; I10 Essential (primary) hypertension; E03.9 Hypothyroidism, unspecified; J45.909 Unspecified asthma, uncomplicated; Z88.0 Allergy status to penicillin; Z88.8 Allergy status to other drugs, medicaments and biological substances; Z79.890 Hormone replacement therapy; Z79.84 Long term (current) use of oral hypoglycemic drugs; Z79.899 Other long term (current) drug therapy
CPT/HCPCS: 31500; 36415; 36556; 36600; 70450; 71045; 72125; 80053; 81001; 82803; 83735; 85025; 85610; 87502; 99291; J1953; J2704; J3010; J3490; J7060; U0002